=== PATIENT | female | born 1945 | race Caucasian/White ===

== ENCOUNTER 2018-11-05 08:33 | Day surgery (SDC) | payer MEDICARE, OTHER ==
[~2018-11-05 08:33] MED LIST: BUPIVACAINE HCL 0.75% INJ/PF (7.5 MG/1 ML) 10 ML SDV OS PRN; CHONDR SU A NA/HYALUR INTRAOC KIT (SURGICARE) ONE; EPINEPHRINE INJ/PF 1 MG/1 ML AMPULE ONE; KETOROLAC TROMETHAMINE 0.45% 4 DROP/0.4 ML DROPERETTE OS PRN; LIDOCAINE 1% INJ-PF (10 MG/ML) 30 ML SDV ONE; LIDOCAINE 4% INJ/PF (40 MG/ML) 5 ML AMPUL OS PRN
[2018-11-05] MEDS ORDERED: MIDAZOLAM 2 MG/2 ML INJ ONE (09:47)
[2018-11-05] MEDS: CYCLOPENTOLATE 0.2%/PHENYLEPHRINE 1% OPH SOLN 2 ML OS PRN ×3 (09:50→10:07)
[2018-11-05] MEDS: TROPICAMIDE 1% OPH SOLN 3 ML OS PRN ×3 (09:50→10:07)
[2018-11-05] MEDS: BESIFLOXACIN HCL 0.6% OPH SUSP 5 ML BOTTLE OS PRN ×4 (09:51→10:40)
[2018-11-05] MEDS: TETRACAINE HCL 0.5% OPH SOLN 0.6 ML DROPERETTE OS PRN ×2 (09:52→10:08)
[2018-11-05] MEDS: DORZOLAMIDE HCL 2%/TIMOLOL MALEAT 0.5% OPH SOLN 10 ML OS PRN ×2 (10:40)
--- NOTE | 2018-11-05 10:58 | [facility] OPERATIVE REPORT E ---
[facility] Operative Report NAME: FREDDY LAZO AGE: 73Y DATE OF SURGERY: 11/05/2018 ROOM: PREOPERATIVE DIAGNOSIS: Cataract, left eye. POSTOPERATIVE DIAGNOSIS: Cataract, left eye. PROCEDURE PERFORMED: Phacoemulsification with posterior chamber intraocular lens, left eye. SURGEON: STEVE GRANT M.D. ANESTHESIA: Topical with MAC. INDICATIONS FOR SURGERY: Difficulty driving at night. PROCEDURE: The patient was brought to the operating room and placed on the operative table. Following tetracaine drops, topical anesthesia was administered. This consisted of instrument wipe pledgets soaked in a solution of 4% Xylocaine mixed with 0.75% Marcaine in a 1:2 ratio. A 2 x 1 cm pledget was placed in the superior fornix. A 1 x 1 cm pledget was placed in the inferior fornix. The eye was patched shut for 5 minutes. The patch was removed. The eye was sterilely prepped and draped in the usual manner. Lid speculum was placed in the eye. The pledgets were removed and 4-0 black silk sutures were placed around the superior and the inferior rectus muscles to be used as traction. A conjunctival peritomy was made at the 10 o'clock position. Hemostasis was obtained with bipolar cautery. A posterior limbal groove was created using a crescent knife and dissected anteriorly towards the cornea. A sharp point blade was used to create a paracentesis site at the 2 o'clock position. A 2.4 mm keratome was used to enter the anterior chamber through the groove. Viscoelastic was injected into the anterior chamber. An anterior capsulotomy was performed using Utrata forceps in a capsulorrhexis fashion. Hydrodissection and hydrodelineation were performed. Phacoemulsification was performed in [id number] technique. Total phaco time was 7.62 CDE. Following this, the I/A unit was used to remove residual cortex. Viscoelastic was injected into the capsular bag. Intraocular lens model SN60WF, 20.0 diopters, serial number [id number], was placed in the capsular bag. The I/A unit was used to remove residual viscoelastic. The wound was seen to be watertight under high and low pressure, and no sutures were placed. The intraocular lens was well centered. The pressure was adjusted in the eye to normal pressure. The 4-0 black silk sutures and lid speculum were removed. The eye was shielded after Besivance drops were placed. The patient tolerated the procedure well and was sent to the recovery room in good condition. DICTATING PHYSICIAN: STEVE GRANT M.D. [id number] PHY#: [id number] ID: [id number] JOB#: [id number] ACCT: [id number] cc:STEVE GRANT M.D. >
--- NOTE | 2018-11-05 10:58 | [facility] DISCHARGE SUMMARY E ---
[facility] Discharge Summary NAME: FREDDY LAZO AGE: 73Y ADMITTED: 11/05/2018 DISCHARGED: 11/05/2018 FINAL DIAGNOSIS: Cataract, left eye. HOSPITAL COURSE: The patient is a 73-year-old lady who underwent uneventful cataract extraction with intraocular lens implant, left eye, on 11/05/2018. She will be discharged to home. She was instructed to resume preoperative medications; to take Tylenol as needed for discomfort; to keep her eye shielded; to use Durezol, Prolensa, and Besivance at 3 p.m. and 8 p.m.; and to follow up in my office in 1 day. DICTATING PHYSICIAN: STEVE GRANT M.D. [id number] PHY#: [id number] ID: [id number] JOB#: [id number] ACCT: [id number] cc:STEVE GRANT M.D. >
== END 2018-11-05 11:15 | disposition home or self-care (01) ==
LOC: SC 08:33
PROVIDERS: ATTEND Ophthalmology
DX: H25.12 Age-related nuclear cataract, left eye (principal); E78.00 Pure hypercholesterolemia, unspecified; F17.210 Nicotine dependence, cigarettes, uncomplicated; Z88.5 Allergy status to narcotic agent; Z88.0 Allergy status to penicillin; Z79.899 Other long term (current) drug therapy; Z79.51 Long term (current) use of inhaled steroids; H25.13 Age-related nuclear cataract, bilateral; H43.813 Vitreous degeneration, bilateral; H04.123 Dry eye syndrome of bilateral lacrimal glands; M79.7 Fibromyalgia
CPT/HCPCS: 66984; V2632; J2250; J3490 ×4; A9270; J0171; 142

== ENCOUNTER 2018-12-24 09:00 | Day surgery (SDC) | payer MEDICARE, OTHER ==
[~2018-12-24 09:00] MED LIST changes: +BUPIVACAINE HCL 0.75% INJ/PF (7.5 MG/1 ML) 10 ML SDV OD PRN; -BUPIVACAINE HCL 0.75% INJ/PF (7.5 MG/1 ML) 10 ML SDV OS PRN; +DORZOLAMIDE HCL 2%/TIMOLOL MALEAT 0.5% OPH SOLN 10 ML OD PRN; +KETOROLAC TROMETHAMINE 0.45% 4 DROP/0.4 ML DROPERETTE OD PRN; -KETOROLAC TROMETHAMINE 0.45% 4 DROP/0.4 ML DROPERETTE OS PRN; +LIDOCAINE 4% INJ/PF (40 MG/ML) 5 ML AMPUL OD PRN; -LIDOCAINE 4% INJ/PF (40 MG/ML) 5 ML AMPUL OS PRN
[2018-12-24] MEDS: CYCLOPENTOLATE 0.2%/PHENYLEPHRINE 1% OPH SOLN 2 ML OD PRN ×3 (10:17→10:37)
[2018-12-24] MEDS: BESIFLOXACIN HCL 0.6% OPH SUSP 5 ML BOTTLE OD PRN ×3 (10:17→11:14)
[2018-12-24] MEDS: TROPICAMIDE 1% OPH SOLN 3 ML OD PRN ×3 (10:17→10:37)
[2018-12-24] MEDS: TETRACAINE HCL 0.5% OPH SOLN 0.6 ML DROPERETTE OD PRN ×2 (10:18→10:37)
[2018-12-24] MEDS ORDERED: MIDAZOLAM 2 MG/2 ML INJ ONE (10:51)
--- NOTE | 2018-12-24 11:39 | [facility] OPERATIVE REPORT E ---
[facility] Operative Report NAME: FREDDY LAZO AGE: 73Y DATE OF SURGERY: 12/24/2018 ROOM: PREOPERATIVE DIAGNOSIS: Cataract, right eye. POSTOPERATIVE DIAGNOSIS: Cataract, right eye. PROCEDURE PERFORMED: Phacoemulsification with posterior chamber intraocular lens, right eye. SURGEON: STEVE GRANT M.D. ANESTHESIA: Topical with MAC. INDICATIONS FOR SURGERY: Difficulty seeing at night due to glare. PROCEDURE: The patient was brought to the Operating Room and placed on the operative table. Following tetracaine drops, topical anesthesia was administered. This consisted of instrument wipe pledgets soaked in a solution of 4% Xylocaine mixed with 0.75% Marcaine in a 1:2 ratio. A 2 x 1 cm pledget was placed in the superior fornix. A 1 x 1 cm pledget was placed in the inferior fornix. The eye was patched shut for 5 minutes. The patch was removed. The eye was sterilely prepped and draped in the usual manner. Lid speculum was placed in the eye. The pledgets were removed. 4-0 black silk sutures were placed around the superior and the inferior rectus muscles to be used as traction. A conjunctival peritomy was made at the 10 o'clock position. Hemostasis was obtained with bipolar cautery. A posterior limbal groove was created using a crescent knife and dissected anteriorly towards the cornea. A sharp point blade was used to create a paracentesis site at the 2 o'clock position. A 2.4 mm keratome was used to enter the anterior chamber through the groove. Viscoelastic was injected into the anterior chamber. An anterior capsulotomy was performed using Utrata forceps in a capsulorrhexis fashion. Hydrodissection and hydrodelineation were performed. Phacoemulsification was performed in qofffo-ioy-qfiekui technique. A total of 10.0 CDE phaco time was used. Following this, the I/A unit was used to remove residual cortex. Viscoelastic was injected into the capsular bag. Intraocular lens model SN60WF, 21.5 diopters, serial number [id number] was placed in the capsular bag. The I/A unit was used to remove residual viscoelastic. The wound was seen to be watertight under high and low pressure, and no sutures were placed. The intraocular lens was well centered. The pressure was adjusted in the eye to normal pressure. The 4-0 black silk sutures and lid speculum were removed. The eye was shielded after Besivance drops were placed. The patient tolerated the procedure well and was sent to the Recovery Room in good condition. A drop of Cosopt was placed in the eye at the end of the surgery. DICTATING PHYSICIAN: STEVE GRANT M.D. [id number] PHY#: [id number] ID: [id number] JOB#: [id number] ACCT: [id number] cc:STEVE GRANT M.D. >
--- NOTE | 2018-12-24 11:39 | [facility] DISCHARGE SUMMARY E ---
[facility] Discharge Summary NAME: FREDDY LAZO AGE: 73Y ADMITTED: 12/24/2018 DISCHARGED: 12/24/2018 HOSPITAL COURSE: The patient is a 73-year-old lady who underwent uneventful cataract extraction with intraocular lens implant right eye on 12/24/2018. She will be discharged to home. She is instructed to resume preoperative medications, take Tylenol as needed for discomfort, keep her eye shielded, to use Durezol, Prolensa, and Besivance at 3 p.m., and to follow up in my office in 1 day. DICTATING PHYSICIAN: STEVE GRANT M.D. [id number] PHY#: [id number] ID: [id number] JOB#: [id number] ACCT: [id number] cc:STEVE GRANT M.D. >
== END 2018-12-24 12:07 | disposition home or self-care (01) ==
LOC: SC 09:00
PROVIDERS: ATTEND Ophthalmology
DX: H25.11 Age-related nuclear cataract, right eye (principal); Z96.1 Presence of intraocular lens; K21.9 Gastro-esophageal reflux disease without esophagitis; Z79.899 Other long term (current) drug therapy; G20 Parkinson's disease; M79.7 Fibromyalgia
CPT/HCPCS: 66984; V2632; J2250; J3490 ×4; A9270; J0171; 142